=== PATIENT | female | born 1980 | race Caucasian/White ===

== ENCOUNTER 2020-09-30 14:06 | Observation (INO) | payer OTHER, SELFPAY ==
[2020-09-30] VITALS (12 sets, daily range): BP systolic 114–207; BP diastolic 70–116; PULSE 105–127; RESP 16–22; TEMP 36.7–36.8; O2SAT 98–100; BMI 28.8
--- NOTE | ~2020-09-30 | XR_ITS ---
EXAMINATION: XR UGI w small bowel DATE: 10/01/2020 21:08 INDICATION: Recurrent nausea and vomiting and abdominal pain TECHNIQUE: The patient drank thick barium, gas-producing crystals, and thin barium. Conventional supi ne abdomen radiographs and fluoroscopy of the esophagus, stomach, and small bowel were performed. Flu oroscopy exposure time was 2.2 minutes. The DAP for this procedure was 16.553 Gycm2. COMPARISON: CT, 09/30/2020 FINDINGS: UPPER GASTROINTESTINAL SERIES: There is no mass or stricture of the esophagus. Esophageal motility is normal. There is no hiatal her krystyna. There was a small amount of spontaneous gastroesophageal reflux. The stomach shows a normal fold ing pattern. SMALL BOWEL SERIES: Motor Installer image demonstrates cholecystectomy clips in the right upper quadrant. There is a moderate volum e of colonic stool. Transit time from the stomach to proximal colon was approximately three hours. Th ere is normal caliber and mucosal fold pattern throughout the small bowel. IMPRESSION: 1. Small amount of spontaneous gastroesophageal reflux. 2. Unremarkable small bowel follow-through. Reviewed, dictated and finalized at location A. ISSARY HELPER
--- NOTE | ~2020-09-30 | CT_ITS ---
EXAMINATION: CT abdomen pelvis w con DATE: 09/30/2020 16:01 INDICATION: Mid abdominal pain. TECHNIQUE: Computed tomography (CT) of the abdomen and pelvis was performed with 100 mL Omnipaque-350 intravenous contrast. Automated exposure control and iterative reconstruction technique were employe d. The dose-length product was 487.34 mGy-cm. COMPARISON: None FINDINGS: Minimal dependent atelectasis in the bilateral lower lobes. Heart size is normal. No pericardial or p leural effusion. Cholecystectomy clips at the gallbladder fossa. Liver, spleen, pancreas, bilateral a drenal glands and kidneys are normal. Common bile duct measures 5 mm diameter which is normal. No int rahepatic biliary ductal dilation. Bladder is distended but without evident wall thickening. There ar e few tiny calcifications measuring 2 mm smaller in the pelvis near the expected locations of the dis forrest ureters which are not definitively identified which could represent either phleboliths or nonobst ructing stones. Bowels including the appendix are normal. There are bilateral ovarian cysts with at l east 2 cysts at the left ovary the largest measuring 3.5 cm and 1.3 cm right adnexal cyst. Uterus is unremarkable. No free intraperitoneal gas or fluid. No pathologically enlarged abdominal or pelvic ly mphadenopathy. Bone island at the right femoral head. IMPRESSION: 1. No acute intra-abdominal/pelvic process. 2. A few tiny calcifications in the pelvis most likely phleboliths but could not absolutely exclude a nonobstructing ureteral stone. Correlate with urinalysis. Reviewed, dictated and finalized at location A. IFIED MEDICAL BILLER IMPRESSION: 1. No acute intra-abdominal/pelvic process. 2. A few tiny calcifications in the pelvis most likely phleboliths but could no t absolutely exclude a nonobstructing ureteral stone. Correlate with urinalysis .
--- NOTE | 2020-09-30 15:00 | PC.NURSE ---
informed pt of need for urine sample. pt states she straight caths herself and sttaes she will. pt states she has her own supplies with her.
--- NOTE | 2020-09-30 15:09 | ED.GENADULT ---
HPI - General Adult General Chief complaint: Abdominal Pain Stated complaint: abd pain/vomiting Time Seen by Provider: 09/30/20 14:42 Source: patient History of Present Illness HPI narrative: Patient is a 40 y/o female complaining of generalized abdominal pain starting yesterday. She describes her pain as aching most of the time, and sharp occasionally. She rates her pain as 8/10. There is no alleviating or exacerbating factor. She has some vomiting, but no diarrhea. She was recently admitted to [facility] for similar complaints. Related Data Home Medications Medication Instructions Recorded Confirmed amitriptyline 50 mg PO HS 09/30/20 09/30/20 insulin glargine [Lantus U-100 30 unit SUBCUT HS 09/30/20 09/30/20 Insulin] insulin lispro [Humalog KwikPen 1 unit SUBCUT TID 09/30/20 09/30/20 Insulin] pantoprazole [Protonix] 40 mg PO HS 09/30/20 09/30/20 Allergies Allergy/AdvReac Type Severity Reaction Status Date / Time ceftriaxone Allergy Unknown Unknown Verified 09/30/20 14:55 morphine Allergy Unknown Unknown Verified 09/30/20 14:55 Penicillins Allergy Unknown Unknown Verified 06/11/18 07:47 metoclopramide [From Reglan] Allergy Unknown Verified 09/30/20 14:55 prochlorperazine Allergy Unknown Verified 09/30/20 14:55 [From Compazine] Review of Systems Constitutional: Constitutional: Denies chills, Denies fever(s), Denies headache(s) and Denies weakness Eyes: Eyes: Denies blurry vision ENT: Denies headache(s) and Denies neck pain Cardiovascular: Cardiovascular: Denies chest pain and Denies dyspnea Respiratory: Respiratory: Denies cough and Denies dyspnea Gastrointestinal: Gastrointestinal: Reports abdominal pain, Denies diarrhea, Reports nausea and Reports vomiting Genitourinary: Genitourinary: Denies hematuria and Denies dysuria Musculoskeletal: Musculoskeletal: Denies back pain and Denies neck pain Neurologic: Denies headache(s) and Denies weakness [facility] Past Medical History Medical History Diabetes mellitus GERD (gastroesophageal reflux disease) Surgical History Surgical History History of section, classical History of cholecystectomy Family History Family History Other Family history of arthritis Hypertension Social History Social History Smoking status: Never smoker Alcohol intake: never Substance use: never Gender identity (if verbalized by the patient): Female Spiritual care concerns: No Exam Const: General: no acute distress and well developed Orientation/consciousness: oriented to person, oriented to place, oriented to time and patient oriented x3 HENMT: Head: normocephalic Ears: external ears normal General nose exam: Normal external nose present Eyes: General: appearance normal, both eyes and all related structures Conjunctivae: conjunctivae normal Neck: Neck: normal visual inspection and full ROM Chest: Chest palpation & inspection: normal inspection of the chest and no tenderness Resp: Effort & Inspection: normal respiratory effort Auscultation: clear to auscultation bilaterally Cardio: Rate: tachycardic Rhythm: regular rhythm GI: GI Palp: No abdominal tenderness and Yes Soft to palpation Skin: General skin exam: normal color and turgor normal Neuro: General: oriented to person, oriented to place, oriented to time and patient oriented x3 Cognition (Neuro): normal cognition Extrem: General: normal to inspection, full ROM and no pedal edema Psych: Appearance: grossly normal Mental Status: mental status grossly normal Affect: normal affect Course Reevaluation(s) Reevaluation #1: Discussed with Dr. Carrasco, who agrees to admit. Date: 09/30/20 Time: 19:25 Vital Signs Vital signs: Vital Signs Temperature 36.7
[2020-09-30] MEDS: SODIUM CHLORIDE 0.9% IV 1,000 ML 999 ML IV CONT (15:20)
[2020-09-30] MEDS: ONDANSETRON INJ 4 MG/2 ML VIAL IV PUSH (15:20)
[2020-09-30 15:27] LABS: Basophils Absolute Auto 0.1 K/mm3 (0.0-0.1); Basophils Percent Auto 0.4 % (0.2-1.2); Eosinophils Absolute Auto 0.1 K/mm3 (0-0.3); Eosinophils Percent Auto 0.4 % (0-4.4); Hematocrit 32.9 % (37.0-47.0); Hemoglobin 10.9 g/dL (12.0-15.0); Immature Granulocyte Absolute 0.03 K/mm3 (0.00-0.031); Immature Granulocyte Percent A 0.3 % (0-0.5); Lymphocytes Absolute Auto 1.11 K/mm3 (0.9-3.2); Lymphocytes Percent Auto 9.3 % (18.3-44.2); Mean Corpuscular HGB Conc 33.1 g/dl (32-36); Mean Corpuscular Hemoglobin 27.6 pg (26-34); Mean Corpuscular Volume 83.3 fl (80-100); Mean Platelet Volume 9.6 fl (7.4-10.4); Monocytes Absolute Auto 0.5 K/mm3 (0.1-0.6); Neutrophils Absolute Auto 10.3 K/mm3 (1.3-6.7); Neutrophils Percent Auto 85.6 % (45.5-73.1); Platelet Count Result 457 k/mm3 (150-375); Red Blood Count 3.95 M/mm3 (4.2-5.4); Red Cell Distribution Width 13.6 % (11.5-14.5)
--- NOTE | 2020-09-30 15:30 | PC.NURSE ---
pt states she is unable to straight cath herself at this time due to the iv. states will try when IVF have infused. informed pt of importance of urine sample. verbalizes understanding.
[2020-09-30 15:39] LABS: Alanine Aminotransferase 20 U/L (4-35); Albumin Level 3.9 g/dL (3.5-5.1); Alkaline Phosphatase 147 U/L (38-126); Anion Gap 9 mmol/L (8-16); Aspartate Amino Transferase 29 U/L (14-36); Bilirubin,Total 0.3 mg/dL (0.2-1.3); Blood Urea Nitrogen 23 mg/dL (7-17); Carbon Dioxide 26 mmol/L (22-30); Chloride 99 mmol/L (98-107); Estimated CRCL calculation 75 ml/min; Estimated Glomerular Filt Rate > 60; Glucose 295 mg/dL (65-105); Lipase 87 U/L (23-300); Potassium 4.9 mmol/L (3.4-5.0); Sodium 134 mmol/L (137-145)
--- NOTE | 2020-09-30 15:43 | ECG_ITS ---
Measurements Intervals [place] Rate: 115 P: [place]: 0 QRS: 101 QRSD: 94 T: 52 QT: 330 QTc: 458 Interpretive Statements SINUS TACHYCARDIA RIGHT AXIS DEVIATION BASELINE ARTIFACT- V2-V3 ABNORMAL ECG Electronically Signed On 09-30-2020 18:33:02 RENAL CASE MANAGER by Nelson Patel D.O.
[2020-09-30] MEDS: KETOROLAC 30 MG/ML VIAL (*BKC) IV PUSH (15:44)
--- NOTE | 2020-09-30 16:36 | PC.NURSE ---
PT REFUSES LABETOLOL AT THIS TIME. STATES HER BLOOD PRESSURE AND HEART RATE ARE ELEVATED DUE TO HER PT. PT REQUEST DILAUDID. DR SARAVIA NOTIFIED
[2020-09-30] MEDS: LORazepam INJ (*CRX) 2 MG/ML VIAL IV PUSH (16:49)
[2020-09-30] MEDS: PROMETHAZINE HCL 25 MG/ML AMPUL IM (16:50)
[2020-09-30] MEDS: DICYCLOMINE HCL INJ 20 MG/2 ML VIAL IM (16:50)
[2020-09-30] MEDS: SODIUM CHLORIDE 0.9% IV 1,000 ML 125 ML IV CONT (19:35)
[2020-09-30] MEDS: fentaNYL CITRATE INJ (*CRX) 100 MCG/2 ML VIAL 50 MCG IV PUSH (19:36)
--- NOTE | 2020-09-30 21:07 | PM.IMHP ---
H&P: HPI History of Present Illness Date/Time: 09/30/20 21:07 Chief complaint: abdominal pain, nausea and vomiting Narrative: This is a 40 year old type I diabetic female who has had recurrent generalized abdominal pain with associated nausea and vomiting who was admitted in [place] over a month ago where she had and EGD performed which demonstrated an ulcer. She was also just discharged from [facility] two days ago after she spent 4 days there for abdominal pain, nausea, and vomiting. The patient is known to have left sided adnexal and ovarian cysts for which she was evaluated by her [employer] Dr. Recio and it was felt that this was not causing her symptoms. The patient is known to have a neurogenic bladder for which she self catheterizes and was started on cephalexin at [facility] as her urinalysis was abnormal but her urine culture came back negative. Since she was discharged home over a day ago the patient has only drank one bottle of water and has had recurrent diffuse abdominal pain w/ associated nausea and vomiting. Point of maximal tenderness is mid abdominal. She denies any fevers, chills, cough, sore throat, chest pain, headache, dysuria, hematuria, diarrhea, or rectal bleeding. The patient has no previous history of gastroparesis. She reports that she hasn't been eating anything since her discharge home. Today in the ER the patient was evaluated and CT abd/pelvis was negative for any acute pathology. Routine labs were obtained and CBC showed mild leukocytosis of 12,000. She has been treated with IV zofran and IV fluids. The patient appears dehydrated and we have been asked to admit the patient to the hospital for supportive care. Review of Systems Review of Systems: All systems reviewed & are unremarkable except as noted in HPI and below PMFSH Past Medical History Medical History Diabetes mellitus GERD (gastroesophageal reflux disease) Surgical History Surgical History History of section, classical History of cholecystectomy Family History Family History Other Family history of arthritis Hypertension Social History Social History Smoking status: Never smoker Alcohol intake: never Substance use: never Gender identity (if verbalized by the patient): Female Spiritual care concerns: No Meds Home Medications and Allergies Home Medications Medication Instructions Recorded Confirmed Type amitriptyline 50 mg PO HS 09/30/20 09/30/20 History insulin glargine [Lantus U-100 30 unit SUBCUT HS 09/30/20 09/30/20 History Insulin] insulin lispro [Humalog KwikPen 1 unit SUBCUT TID 09/30/20 09/30/20 History Insulin] pantoprazole [Protonix] 40 mg PO HS 09/30/20 09/30/20 History Allergies Allergy/AdvReac Type Severity Reaction Status Date / Time ceftriaxone Allergy Unknown Unknown Verified 09/30/20 14:55 morphine Allergy Unknown Unknown Verified 09/30/20 14:55 Penicillins Allergy Unknown Unknown Verified 06/11/18 07:47 metoclopramide [From Reglan] Allergy Unknown Verified 09/30/20 14:55 prochlorperazine Allergy Unknown Verified 09/30/20 14:55 [From Compazine] Vital Signs Vital Signs - 24 hr 09/30/20 14:10 09/30/20 14:53 09/30/20 16:24 Temperature 36.7 C Pulse Rate 127 H 120 H 120 H Respiratory Rate 16 20 22 H Blood Pressure 175/100 H 181/104 H 176/111 H Pulse Oximetry 100 99 100 09/30/20 16:55 09/30/20 17:31 09/30/20 18:00 Temperature Pulse Rate 112 H 105 H 112 H Respiratory Rate 18 18 20 Blood Pressure 149/90 H 156/84 H 170/107 H Pulse Oximetry 99 99 98 09/30/20 18:30 09/30/20 19:00 09/30/20 19:25 Temperature Pulse Rate 124 H 124 H 120 H Respiratory Rate 22 H 18 18 Blood Pressure 202/111 H 207/116 H 203/112 H Pulse Ox
[2020-09-30] MEDS: HYDROmorphone HCL INJ (*CRX) 1 MG/ML SYR 0.5 MG IV PUSH (22:44)
--- NOTE | 2020-09-30 22:49 | PC.NURSE ---
This patient, Linette Be, was admitted to Medical Room 241-. Patient/family oriented to hospital policies and general routines including ID bracelet, bed and alarms, visiting hours, pain management, procedures, bathroom and other care routines, personal items, smoking policy, room service/diet, and visiting hours. Information on how to activate the Rapid Response Team has been discussed. Patient/Family are encouraged to report perceived risks to care and to ask questions if they do not understand what they are told or what they should do.
[2020-10-01] VITALS (10 sets, daily range): BP systolic 122–206; BP diastolic 67–108; PULSE 100–122; RESP 16–22; TEMP 36.3–37; O2SAT 99–100
[2020-10-01 01:38] LABS: Add Urine Microscopic? YES; Appearance Urine Clear (Clear); Bacteria Urine Trace /hpf; Bilirubin Urine Negative (Negative); Blood Urine 2+ (Negative); Color Urine Straw (Yellow); Glucose Urine UA 3+ mg/dL (Negative); Ketones Urine 1+ mg/dL (Negative); Leukocyte Esterase Ur Negative LEU/UL (Negative); Nitrate Urine Negative (Negative); Protein Urine 3+ mg/dL (Negative); RBC Urine >75 /hpf (0-2); Specific Grav Ur 1.027 (1.001-1.035); Squamous Epithelial Cell Urine Rare /hpf (Few); Urobilinogen Urine Negative mg/dL (<2.0)
[2020-10-01 01:43] LABS: Amphetamine Screen Urine Negative (Negative); Barbiturate Screen Urine Negative (Negative); Benzodiazepines Screen Urine Negative (Negative); Cannabinoid Screen Urine Negative (Negative); Cocaine Screen Urine Negative (Negative); Methadone Screen Urine Negative (Negative); Opiate Screen Urine Positive (Negative); Phencyclidine Screen Urine Negative (Negative)
[2020-10-01] MEDS: HYDROmorphone HCL INJ (*CRX) 1 MG/ML SYR 0.5 MG IV PUSH ×2 (02:54→06:10)
[2020-10-01] MEDS: ONDANSETRON INJ 4 MG/2 ML VIAL IV PUSH ×4 (02:54→18:29)
[2020-10-01] MEDS: SODIUM CHLORIDE 0.9% IV 1,000 ML 125 ML IV CONT (04:26)
[2020-10-01 04:56] LABS: Basophils Absolute Auto 0.1 K/mm3 (0.0-0.1); Basophils Percent Auto 0.5 % (0.2-1.2); Eosinophils Percent Auto 0.2 % (0-4.4); Immature Granulocyte Absolute 0.07 K/mm3 (0.00-0.031); Immature Granulocyte Percent A 0.6 % (0-0.5); Lymphocytes Absolute Auto 1.57 K/mm3 (0.9-3.2); Lymphocytes Percent Auto 12.8 % (18.3-44.2); Mean Corpuscular HGB Conc 32.3 g/dl (32-36); Mean Corpuscular Hemoglobin 27.6 pg (26-34); Mean Corpuscular Volume 85.6 fl (80-100); Monocytes Absolute Auto 0.4 K/mm3 (0.1-0.6); Monocytes Percent Auto 2.9 % (2.6-8.5); Neutrophils Absolute Auto 10.2 K/mm3 (1.3-6.7); Red Blood Count 3.62 M/mm3 (4.2-5.4); White Blood Count 12.2 K/mm3 (4.5-10.0)
[2020-10-01 05:09] LABS: Anion Gap 13 mmol/L (8-16); Blood Urea Nitrogen 19 mg/dL (7-17); Calcium 9.1 mg/dL (8.4-10.2); Carbon Dioxide 18 mmol/L (22-30); Chloride 102 mmol/L (98-107); Estimated CRCL calculation 76 ml/min; Estimated Glomerular Filt Rate > 60; Glucose 401 mg/dL (65-105); Magnesium 2.2 mg/dL (1.6-2.3); Potassium 5.8 mmol/L (3.4-5.0); Sodium 133 mmol/L (137-145)
[2020-10-01 05:10] LABS: Platelet Clumps Present; Platelet Estimate Adequate (Adequate)
[2020-10-01] MEDS: INSULIN ASPART (*BKC) 100 UNITS/ML SUB-Q (06:11)
[2020-10-01 06:14] LABS: Glucose Point of Care 386 (65-105)
[2020-10-01] MEDS: PANTOPRAZOLE SODIUM IV 40 MG VIAL IV PUSH (08:21)
[2020-10-01 08:59] LABS: Albumin Level 3.5 g/dL (3.5-5.1); Anion Gap 10 mmol/L (8-16); Blood Urea Nitrogen 18 mg/dL (7-17); Calcium 9.3 mg/dL (8.4-10.2); Carbon Dioxide 19 mmol/L (22-30); Chloride 106 mmol/L (98-107); Estimated CRCL calculation 76 ml/min; Estimated Glomerular Filt Rate > 60; Glucose 300 mg/dL (65-105); Phosphorus 3.6 mg/dL (2.5-4.5); Potassium 4.4 mmol/L (3.4-5.0); Sodium 135 mmol/L (137-145)
[2020-10-01 09:01] LABS: Lactic Acid Reflex 2.2 mmol/L (0.7-2.1)
[2020-10-01 09:02] LABS: Beta-Hydroxybutyrate/Acetoacetate 2.78 mmol/L (0.02-0.27)
[2020-10-01] MEDS: SODIUM CHLORIDE 0.9% IV 1,000 ML 999 ML IV CONT (10:09)
[2020-10-01] MEDS: INSULIN ASPART (*BKC) 100 UNITS/ML 15 UNITS SUB-Q (10:16)
[2020-10-01] MEDS: INSULIN GLARGINE (*BKC) 100 UNITS/ML 30 UNITS SUB-Q (10:16)
[2020-10-01] MEDS: KETOROLAC 15 MG/ML VIAL (*BKC) IV PUSH ×2 (10:20→17:06)
[2020-10-01 10:27] LABS: Glucose Point of Care 183 (65-105)
[2020-10-01 11:30] LABS: Glucose Point of Care 149 (65-105)
[2020-10-01 11:41] LABS: Reflex Lactic Acid Yes or No Add Lactic
[2020-10-01 12:26] LABS: Lactic Acid 1.8 mmol/L (0.7-2.1)
[2020-10-01 12:35] LABS: Glucose Point of Care 80 (65-105)
[2020-10-01] MEDS: DEXTROSE 50% 25 GM/50 ML SYRINGE IV PUSH ×3 (13:12→17:13)
[2020-10-01 13:13] LABS: Glucose Point of Care 56 (65-105)
[2020-10-01] MEDS: DEXTROSE 5% 1,000 ML 1,000 ML 125 ML IV CONT (13:29)
[2020-10-01 13:37] LABS: Glucose Point of Care 94 (65-105)
[2020-10-01 14:24] LABS: Albumin Level 3.7 g/dL (3.5-5.1); Anion Gap 5 mmol/L (8-16); Blood Urea Nitrogen 19 mg/dL (7-17); Calcium 9.3 mg/dL (8.4-10.2); Carbon Dioxide 24 mmol/L (22-30); Chloride 109 mmol/L (98-107); Estimated CRCL calculation 84 ml/min; Estimated Glomerular Filt Rate > 60; Glucose 79 mg/dL (65-105); Potassium 4.5 mmol/L (3.4-5.0); Sodium 138 mmol/L (137-145)
--- NOTE | 2020-10-01 14:55 | PM.IMPN ---
Progress Note: A&P Assessment and Plan (1) Abdominal pain: Qualifiers: Abdominal location: generalized Qualified Code(s): R10.84 - Generalized abdominal pain Code(s): R10.9 - Unspecified abdominal pain Status: Acute Assessment and Plan: Continue pain control and avoid narcotics. No signifciant pathology has been identified to account for her abdominal pain and may simply be secondary to nausea and vomiting. We will obtain medical records from [facility] as well as her recent EGD in [place]. Will obtain gastric emptying study and small-bowel follow-through Last BM was yesterday (2) Nausea & vomiting: Qualifiers: Vomiting Intractability: unspecified Vomiting type: unspecified Qualified Code(s): R11.2 - Nausea with vomiting, unspecified Code(s): R11.2 - Nausea with vomiting, unspecified Status: Acute Assessment and Plan: Consider that the patient may have undiagnosed gastroparesis. antiemetics prn and obtained gastric emptying study before start Reglan. (3) Uncontrolled diabetes mellitus: Qualifiers: Diabetes mellitus type: type 1 Glycemic state: with hyperglycemia Qualified Code(s): E10.65 - Type 1 diabetes mellitus with hyperglycemia Code(s): E11.65 - Type 2 diabetes mellitus with hyperglycemia Status: Chronic Assessment and Plan: Did not receive Lantus last evening and today her CO2 was decreased to 19 with increased beta hydroxybutyrate acid with normal gap. Continue aggressive hydration restart Lantus with NovoLog and serial electrolytes and CO2 Hemoglobin A1c 9.0 (4) GERD (gastroesophageal reflux disease): Qualifiers: Esophagitis presence: esophagitis presence not specified Qualified Code(s): K21.9 - Gastro-esophageal reflux disease without esophagitis Code(s): K21.9 - Gastro-esophageal reflux disease without esophagitis Status: Chronic Assessment and Plan: PPI therapy IV. (5) DVT prophylaxis: Code(s): Z29.9 - Encounter for prophylactic measures, unspecified Status: Acute Assessment and Plan: Lovenox Subjective Date/time seen: 10/01/20 14:55 Interval history: Date of visit 10/01. 40-year-old type 2 diabetic recently discharged from [facility] for evaluation abdominal pain and readmitted here with same complaints of nausea vomiting abdominal pain and anorexia. There she saw GI, boom storage, with with CT scan, EGD and no further evaluation deemed necessary. Said that she had not really been able to eat since discharge from there and presented here slightly dehydrated with similar complaints She relates she had a gastric emptying study some 5 years ago as well small-bowel study than. No documented peptic disease. Has neurogenic bladder and does self catheterizations Exam Narrative: Exam Narrative: Blood pressure 146/86 pulse is 110 respirations 16 per minute and labored afebrile Pupils equal reactive light sclera anicteric Neck supple Lungs clear CV regular rate rhythm slightly tacky no murmurs Abdomen is soft mild diffuse tenderness no rebound or guarding but with decreased bowel sounds Extremities without edema distal pulses are 2+ Neuro she is alert she is oriented there is no focal neurological deficits Objective Data Vital Signs Vital Signs: Vital Signs - 24 hr 09/30/20 16:24 09/30/20 16:55 09/30/20 17:31 Temperature Pulse Rate 120 H 112 H 105 H Respiratory Rate 22 H 18 18 Blood Pressure 176/111 H 149/90 H 156/84 H Pulse Oximetry 100 99 99 09/30/20 18:00 09/30/20 18:30 09/30/20 19:00 Temperature Pulse Rate 112 H 124 H 124 H Respiratory Rate 20 22 H 18 Blood Pressure 170/107 H 202/111 H 207/116 H Pulse Oximetry 98 99 99 09/30/20 19:25 09/30/20 21:04 09/30/20 21:40 Temperature 36.8 C Pulse Rate 120 H 122 H Respiratory Rate 18 18 Blood Pressure 203/112 H 181/111 H 114/70 Pulse Oximetry 100 99 09/30/20 21:57 10/01/20 00:
[2020-10-01 15:09] LABS: Glucose Point of Care 57 (65-105)
[2020-10-01 15:25] LABS: Glucose Point of Care 82 (65-105)
[2020-10-01] MEDS: DEXTROSE 5%/0.9% SOD CHL 1,000 ML 125 ML IV CONT (17:08)
[2020-10-01 17:22] LABS: Glucose Point of Care 45 (65-105)
[2020-10-01 17:36] LABS: Glucose Point of Care 88 (65-105)
[2020-10-01] MEDS: hydrALAZINE HCL 20 MG/ML VIAL 10 MG IV PUSH (18:15)
[2020-10-01] MEDS: HYDROmorphone HCL INJ (*CRX) 1 MG/ML SYR IV PUSH (18:27)
[2020-10-01 18:46] LABS: Glucose Point of Care 83 (65-105)
[2020-10-01] MEDS: ENOXAPARIN 40 MG/0.4 ML SYRINGE SUB-Q (20:48)
[2020-10-01 21:43] LABS: Glucose Point of Care 83 (65-105)
--- NOTE | 2020-10-01 23:13 | PC.NURSE ---
Pt's mother called concerned about daughter's pain and elevated b/p. Explained that pain meds were not due at this time. Mother upset and states that when she is in hospital they do nothing and just give her pain meds and iv fluids. I explained we received records from [facility] and that test have been performed with nothing showing up. Explained that she did have ct scan and gastric emptying study. Egd and colonoscopy were also done at another facility. Mother continues to state she wants her daughter given pain meds and something to calm her down. Pt is now requesting to leave AMA, spoke with Carlos FIGUEREDO that pt is wanting to sign out. Pt sign AMA papers IV dc'ed and ralph dced.
--- NOTE | 2020-10-25 15:43 | PM.EVENT ---
Event Note Event Note Event Note: 10/01/202229 I was called that the patient is going to sign out AMA.
== END 2020-10-02 00:02 | disposition left against medical advice (07) ==
LOC: ANHED 14:54 → ANH2MED 19:51
PROVIDERS: Internal Medicine; Admitting Provider Family Medicine; Emergency Provider Emergency Medicine; PCP Internal Medicine; Visit Provider Internal Medicine
DX: R10.84 Generalized abdominal pain (principal); E10.65 Type 1 diabetes mellitus with hyperglycemia; R11.2 Nausea with vomiting, unspecified; N31.9 Neuromuscular dysfunction of bladder, unspecified; K21.9 Gastro-esophageal reflux disease without esophagitis
CPT/HCPCS: 36415; 51702; 74177; 74240; 74248; 80048; 80053; 80069; 80307; 81001; 82010; 83036; 83605; 83690; 83735; 85025; 87086; 93005; 96361; 96365; 96372; 96374; 96375; 96376; 99285; C9113; G0378; G0379; J0131; J0360; J0500; J1170; J1650; J1815; J1885; J2060; J2405; J2550; J3010; J7030; J7042; J7070; Q9967

== ENCOUNTER 2021-06-09 16:25 | Emergency (ER) | payer MEDICARE, MEDICAID, SELFPAY ==
--- NOTE | ~2021-06-09 | XR_ITS ---
EXAMINATION: XR finger 1st LT min 2V DATE: 06/09/2021 16:53 INDICATION: Pain at the left first metacarpophalangeal joint post injury with audible pop. TECHNIQUE: Dorsal palmar, lateral and oblique views of the left first digit were obtained COMPARISON: None FINDINGS: Alignment is normal. No fracture. Joint spaces are normal. Soft tissues are unremarkable. IMPRESSION: 1. Negative left thumb radiographs. Reviewed, dictated and finalized at location A.
[2021-06-09 16:34] VITALS: BP 131/79; PULSE 110; RESP 14; TEMP 37.4; O2SAT 100
[2021-06-09 16:47] VITALS: BP 131/79; PULSE 110; RESP 14; TEMP 37.4; O2SAT 100
--- NOTE | 2021-06-09 17:25 | ED.UPPEXIN ---
HPI - Extremity Injury (Upper) General Chief Complaint: Extremity Injury, Upper Stated Complaint: left hand injury Time Seen by Provider: 06/09/21 16:58 Source: patient and RN notes reviewed Mode of arrival: ambulatory Limitations: no limitations History of Present Illness HPI narrative: Patient presents today complaining of an injury to the left thumb 2 days ago. She was lowering herself to the floor when she heard a pop in her left thumb and fell onto her hand. She subsequently went to the ER at [facility] where she had a wrist x-ray. She presents today stating she was having pain in her wrist and is requesting an x-ray to her thumb. She currently rates her pain 7/10 and has been taking ibuprofen with mild relief. Pain increases with touching and with movement. MD complaint: injury to: left and finger Related Data Home Medications Medication Instructions Recorded Confirmed amitriptyline 50 mg PO HS 09/30/20 06/09/21 insulin glargine [Lantus U-100 20 unit SUBCUT HS 09/30/20 06/09/21 Insulin] insulin lispro [Humalog KwikPen 5 unit SUBCUT TID 09/30/20 06/09/21 Insulin] pantoprazole [Protonix] 40 mg PO HS 09/30/20 06/09/21 metoprolol tartrate 50 mg PO DAILY 06/09/21 06/09/21 Allergies Allergy/AdvReac Type Severity Reaction Status Date / Time ceftriaxone Allergy Unknown Anaphylaxis Verified 06/09/21 16:45 morphine Allergy Unknown Hives Verified 06/09/21 16:45 Penicillins Allergy Unknown Other Verified 06/09/21 16:45 metoclopramide [From Reglan] Allergy Hallucinati Verified 06/09/21 16:45 ng prochlorperazine Allergy Hallucinati Verified 06/09/21 16:45 [From Compazine] ng Review of Systems Review of Systems: CONSTITUTIONAL: Denies body aches, fever, chills, or sweats. EYES: Denies visual changes, redness, or discharge. ENT: Denies rhinorrhea, congestion, sore throat, or otalgia. CARDIOVASCULAR: Denies chest pain, palpitations, or edema. RESPIRATORY: Denies cough or dyspnea. GASTROINTESTINAL: Denies abdominal pain, nausea, vomiting, or diarrhea. GENITOURINARY: Denies dysuria or hematuria. SKIN: Denies rash, itching, or wounds. MUSCULOSKELETAL: Denies back pain, or myalgia. + Left thumb injury NEUROLOGIC: Denies headache, numbness, tingling, or weakness. PSYCH: Denies depression or anxiety. [facility] Past Medical History Medical History Diabetes mellitus GERD (gastroesophageal reflux disease) Surgical History Surgical History History of section, classical History of cholecystectomy Family History Family History Other Family history of arthritis Hypertension Social History Social History Smoking status: Never smoker Alcohol intake: never Substance use: never Gender identity (if verbalized by the patient): Female Spiritual care concerns: No Comments At time of signature, I have reviewed and agree with nursing past medical, surgical, social and family history unless otherwise noted. Please see nursing chart for further information. There is no relevant family history pertinent to the presenting complaint Exam Narrative: GENERAL: Well-appearing, well-nourished, and in no acute distress. HEAD: Normocephalic, atraumatic. EYES: EOMI. No redness or drainage. Conjunctivae normal. ENT: Mucous membranes pink and moist. NECK: Normal AROM. CHEST: No respiratory distress. EXTREMITIES: Left thumb: Mild edema throughout the whole thumb. Ecchymosis to the interphalangeal joint and distal phalanx. Tenderness to the thumb thenar eminence. Pain with range of motion of the thumb and most severely at the MCP. Distal sensation intact. Capillary refill normal. Radial pulse normal. SKIN: Warm, dry, no rash. Capillary refill normal
== END 2021-06-09 17:43 | disposition home or self-care (01) ==
PROVIDERS: Emergency Provider Nurse Practitioner; PCP Internal Medicine
DX: S63.602A Unspecified sprain of left thumb, initial encounter (principal); W19.XXXA Unspecified fall, initial encounter
CPT/HCPCS: 73140; 99213; G0463

== ENCOUNTER 2022-01-23 16:43 | Emergency (ER) | payer MEDICARE, MEDICAID, SELFPAY ==
--- NOTE | ~2022-01-23 | XR_ITS ---
XR ankle LT min 3V DATE: 01/23/2022 17:26 INDICATION: Pain and swelling of left ankle. No known injury. TECHNIQUE: 4 views COMPARISON: None FINDINGS: There is prominent soft tissue swelling of the left ankle and foot. No fracture or dislocation of the ankle or disruption of the ankle mortise is detected. No periosteal reaction or bone destruction. IMPRESSION: Prominent soft tissue swelling of the ankle and foot Reviewed, dictated and finalized at location A.
[2022-01-23 16:58] VITALS: BP 154/89; PULSE 117; RESP 18; TEMP 36.5; O2SAT 98
--- NOTE | 2022-01-23 17:03 | ED.GENADULT ---
HPI - General Adult General Chief complaint: Extremity Problem,Nontraumatic Stated complaint: Left Foot/ Ankle Injury Time Seen by Provider: 01/23/22 17:03 Source: patient Mode of arrival: ambulatory Limitations: no limitations History of Present Illness HPI narrative: 41-year-old female presented for complaint of left lateral and posterior ankle pain, for 1 week. Pain is constant and severe. Denies known injury. She has been using crutches. Taking Tylenol. Endorses bilateral lower extremity edema, states she is following with her PCP about this. Related Data Home Medications Medication Instructions Recorded Confirmed pantoprazole [Protonix] 40 mg PO HS 09/30/20 01/23/22 metoprolol tartrate [Lopressor] 50 mg PO DAILY 06/09/21 01/23/22 Insulin Pump Under Skin 01/23/22 buprenorphine [Butrans] 5 mcg 01/23/22 cyanocobalamin (vitamin B-12) 01/23/22 ergocalciferol (vitamin D2) 50,000 unit PO WEEKLY 01/23/22 01/23/22 furosemide 20 mg PO DAILY 01/23/22 01/23/22 levothyroxine 25 mcg PO DAILY 01/23/22 01/23/22 lisinopril 2.5 mg PO DAILY 01/23/22 01/23/22 rosuvastatin mg 01/23/22 Allergies Allergy/AdvReac Type Severity Reaction Status Date / Time ceftriaxone Allergy Unknown Anaphylaxis Verified 01/23/22 16:50 morphine Allergy Unknown Hives Verified 01/23/22 16:50 Penicillins Allergy Unknown Other Verified 01/23/22 16:50 metoclopramide [From Reglan] Allergy Hallucinati Verified 01/23/22 16:50 ng prochlorperazine Allergy Hallucinati Verified 01/23/22 16:50 [From Compazine] ng Review of Systems Review of Systems: CONSTITUTIONAL: Denies body aches, fever, chills EYES: Denies visual changes ENT: Denies rhinorrhea, congestion CARDIOVASCULAR: Denies chest pain, palpitations, or edema. RESPIRATORY: Denies cough or dyspnea. GASTROINTESTINAL: Denies abdominal pain, nausea, vomiting, or diarrhea. SKIN: Denies rash, itching, or wounds. MUSCULOSKELETAL: Denies back pain, joint pain, or myalgia. NEUROLOGIC: Denies headache, numbness, tingling, or weakness. PSYCH: Denies depression or anxiety. All systems reviewed & are unremarkable except as noted in HPI and below PMFSH Past Medical History Medical History Diabetes mellitus GERD (gastroesophageal reflux disease) Surgical History Surgical History History of section, classical History of cholecystectomy Family History Family History Other Family history of arthritis Hypertension Social History Social History Smoking status: Never smoker Alcohol intake: never Substance use: never Gender identity (if verbalized by the patient): Female Spiritual care concerns: No Comments At time of signature, I have reviewed and agree with nursing past medical, surgical, social and family history unless otherwise noted. Please see nursing chart for further information. There is no relevant family history pertinent to the presenting complaint Exam Narrative: GENERAL: Well-appearing, well-nourished, and in no acute distress. HEAD: Normocephalic, atraumatic. EYES: PERRLA, conjunctivae clear NECK: Supple. CHEST: Speaks in full sentences. No respiratory distress. HEART: Regular rate and rhythm. Normal and equal peripheral pulses. EXTREMITIES: BLE with 2+pitting edema; skin to left lateral and posterior ankle tender to light touch. Limited range of motion with flexion/extension/rotation, endorses pain with movement. No ecchymosis. No open wounds, skin tenting, or obvious deformity; pulse palpable and equal bilaterally, skin warm, dry, pink. Capillary refill less than 3 seconds. SKIN: Warm, dry, no rash. NEURO: Alert and oriented x3. PSYCH: Normal mood and affect Course Course Emergency Course: Patient is aware of diagnos
== END 2022-01-23 17:44 | disposition home or self-care (01) ==
PROVIDERS: Emergency Provider Nurse Practitioner Family; PCP Internal Medicine
DX: M25.572 Pain in left ankle and joints of left foot (principal); K21.9 Gastro-esophageal reflux disease without esophagitis; E10.9 Type 1 diabetes mellitus without complications
CPT/HCPCS: 73610; 99213; G0463

== ENCOUNTER 2023-10-24 12:09 | Emergency (ER) | payer MEDICARE, MEDICAID, SELFPAY ==
[2023-10-24 12:23] VITALS: BP 158/89; PULSE 82; RESP 16; TEMP 36.7; O2SAT 97
--- NOTE | 2023-10-24 12:32 | ED.EYEPROB ---
HPI - Eye Problem General Chief complaint: Eye Problems Stated complaint: Right Eye Problem Source: patient, RN notes reviewed and old records reviewed Mode of arrival: ambulatory Limitations: no limitations History of Present Illness HPI Narrative: 43-year-old female presents to [facility] with right eye irritation, for just saw her eye doctor and was told had dry I instructed to use over her drop. Patient states has been using a drops now eye is ring, with drainage in a crusting. MD chief complaint: eye pain and eye redness Onset (ago): week(s) (3) Related Data Home Medications Medication Instructions Recorded Confirmed pantoprazole 40 mg tablet,delayed 40 mg PO HS 09/30/20 01/23/22 release (Protonix) metoprolol tartrate 50 mg tablet 50 mg PO DAILY 06/09/21 01/23/22 (Lopressor) Insulin Pump Under Skin 01/23/22 buprenorphine 5 mcg/hour weekly 5 mcg 01/23/22 transdermal patch (Butrans) cyanocobalamin (vitamin B-12) 01/23/22 1,000 mcg/mL injection solution ergocalciferol (vitamin D2) 1,250 50,000 unit PO WEEKLY 01/23/22 01/23/22 mcg (50,000 unit) capsule furosemide 20 mg tablet 20 mg PO DAILY 01/23/22 01/23/22 levothyroxine 25 mcg tablet 25 mcg PO DAILY 01/23/22 01/23/22 lisinopril 2.5 mg tablet 2.5 mg PO DAILY 01/23/22 01/23/22 rosuvastatin 5 mg tablet mg 01/23/22 escitalopram oxalate 10 mg tablet mg 10/24/23 gabapentin 300 mg capsule mg 10/24/23 nortriptyline 10 mg capsule mg 10/24/23 oxycodone-acetaminophen 10 mg-325 tablet 10/24/23 mg tablet Allergies Allergy/AdvReac Type Severity Reaction Status Date / Time ceftriaxone Allergy Unknown Anaphylaxis Verified 01/23/22 16:50 morphine Allergy Unknown Hives Verified 01/23/22 16:50 Penicillins Allergy Unknown Other Verified 01/23/22 16:50 metoclopramide [From Reglan] Allergy Hallucinati Verified 01/23/22 16:50 ng prochlorperazine Allergy Hallucinati Verified 01/23/22 16:50 [From Compazine] ng Review of Systems Constitutional: Constitutional: Reports no additional constitutional complaints, Denies body ache(s), Denies chills, Denies fatigue, Denies fever(s) and Denies headache(s) Eyes: Eyes: Reports as per HPI, Denies blurry vision and Reports photophobia Comments: Redness, drainage, crusting, irritation ENT: Reports system reviewed and no additional complaints, except as documented, Denies vertigo, Denies dizziness, Denies ear discharge, Denies otalgia, Denies facial pain, Denies headache(s), Denies nasal congestion, Denies nasal discharge, Denies sinus pain, Denies sinus pressure and Denies sore throat Cardiovascular: Cardiovascular: Reports no additional cardiovascular complaints, Denies chest pain, Denies chest pain at rest, Denies rapid heart rate and Denies dyspnea Respiratory: Respiratory: Reports no additional respiratory complaints, Denies chest congestion, Denies cough, Denies pain on inspiration, Denies pain with cough and Denies dyspnea Gastrointestinal: Gastrointestinal: Denies abdominal pain, Denies diarrhea, Denies nausea and Denies vomiting Integumentary/Breasts: Skin/Breast: Denies rash Neurologic: Reports system reviewed and no additional complaints, except as documented, Denies vertigo, Denies dizziness and Denies headache(s) Endocrine: Endocrine: Denies fatigue PMFSH Past Medical History Medical History Diabetes mellitus GERD (gastroesophageal reflux disease) Surgical History Surgical History History of section, classical History of cholecystectomy Family History Family History Other Family history of arthritis Hypertension Social History Social History Smoking status: Never smoker Alcohol intake: never Substance use: never Gender identity (if verbal
== END 2023-10-24 12:40 | disposition home or self-care (01) ==
PROVIDERS: Emergency Provider Registered Nurse; PCP Internal Medicine
DX: H10.31 Unspecified acute conjunctivitis, right eye (principal); E11.9 Type 2 diabetes mellitus without complications; K21.9 Gastro-esophageal reflux disease without esophagitis
CPT/HCPCS: 99213; G0463